=== PATIENT | male | born 1940 | race Caucasian/White ===

== ENCOUNTER → 2016-06-08 | Outpatient (CLI) | payer MEDICARE, OTHER ==
[~2016-06-08] MED LIST: ALEVE 220MG220 MG PO; ASPI325T6; ASPIR-LOW81 MG PO; ASPIRIN E.C. 8181 MG PO; FERROUS SU325 MG/TAB PO; FLOMAX 0.40.4 MG/CAP PO; FLOMAX0.4 MG PO; FOLIC ACID PO; LISINOPRIL PO; LISINOPRIL20 MG PO; NORCO 325 MG-51 TAB PO; NYSTATIN CREAM15 GM TOP; RELAFEN 50500 MG/TAB PO; RESTORIL30 MG PO; ROXICODONE 55 MG/TAB PO; TYLENOL 500MG500 MG PO; ULTRAM 50MG TAB50 MG; VICODIN 5/5001 UDTAB PO; VITAMIN C1 TAB PO; ZESTRIL 10MG10 MG PO; ZOCOR 10MG10 MG; ZOCOR 20MG20 MG PO; ZOFRAN 4MG T4 MG/TAB PO; ZOFRAN4 M1 PO; ZOLOFT 50MG50 MG PO
== END ==
LOC: COL.RAD 13:07
DX: N28.89 Other specified disorders of kidney and ureter (principal); R10.2 Pelvic and perineal pain; K86.89 Other specified diseases of pancreas; Z90.49 Acquired absence of other specified parts of digestive tract; Z90.79 Acquired absence of other genital organ(s)

== ENCOUNTER → 2017-08-25 | Outpatient (CLI) | payer MEDICARE, OTHER | LOC: COL.RAD 07:46 | DX: M25.812 Other specified joint disorders, left shoulder (principal) | CPT/HCPCS: J3301; Q9967 ==

== ENCOUNTER → 2018-01-16 | Outpatient (CLI) | payer MEDICARE, OTHER | LOC: COL.RAD 07:56 | DX: S46.012A Strain of muscle(s) and tendon(s) of the rotator cuff of left shoulder, initial encounter (principal); M75.52 Bursitis of left shoulder | CPT/HCPCS: J3301; Q9967 ==

== ENCOUNTER 2018-02-15 02:00 | Emergency (ER) | payer MEDICARE, OTHER ==
[~2018-02-15] VITALS: Ht 180.3 cm; Wt 97.7 kg
[2018-02-15 02:03] VITALS: TEMP 96.9
[2018-02-15] MEDS ORDERED: ZOCOR 10MG10 MG PO (02:21)
[2018-02-15 02:24] LABS: BASO % 0.3 % (0.0-2.0); EOS # 0.1 (0.0-0.7); EOS % 1.6 % (0-4.0); GRAN # 4.1 (1.4-6.5); GRAN % 51.6 % (42.2-75.2); HEMATOCRIT 42.8 % (42.0-52.0); LYMPH % 37.8 % (20.0-51.0); MEAN CELL VOLUME 91 fl (80.0-100.0); MEAN CORPUSCULAR HEMOGLOBIN 32 pg (27.0-31.0); MEAN CORPUSCULAR HGB CONC 35 g/dl (33.0-37.0); MEAN PLATELET VOLUME 9.7 fl (7.4-10.4); MONO # 0.7 (0.1-0.6); MONO % 8.2 % (1.7-9.3); PLATELET COUNT 206 K/mm3 (130-400); RED BLOOD COUNT 4.72 M/mm3 (4.20-5.60); REDCELL DISTRIBUTION WIDTH-CV 12.6 % (11.5-14.5)
[2018-02-15 02:39] LABS: ALBUMIN 3.9 gm/dL (3.5-5.0); BILIRUBIN,TOTAL 0.6 mg/dL (0.0-1.0); CALCIUM 9.4 mg/dL (8.4-10.2); CREATININE, serum 0.86 mg/dL (0.66-1.25); POTASSIUM 4.4 mmol/L (3.4-5.0); TOTAL PROTEIN 6.8 gm/dL (6.4-8.2)
[2018-02-15 02:50] LABS: COLLECTION METHOD CLEAN CATCH
[2018-02-15 03:21] LABS: MUCOUS Present /lpf; PH 5 (5-8); SQUAMOUS EPITHELIAL 0-2 /hpf; URINE APPEARANCE Cloudy; URINE BACTERIA Rare /hpf; URINE BILIRUBIN Negative (NEGATIVE); URINE BLOOD 3+ (NEGATIVE); URINE COLOR Yellow; URINE GLUCOSE Negative (NEGATIVE); URINE KETONE Negative (NEGATIVE); URINE LEUKOCYTE ESTERASE Negative (NEGATIVE); URINE NITRATE Negative (NEGATIVE); URINE PROTEIN(semi-quant) 1+ (NEGATIVE); URINE RBC >50 /hpf; URINE UROBILINOGEN Negative (NEGATIVE)
[2018-02-15] MEDS ORDERED: NORCO 325 MG-51 TAB PO (03:56)
[2018-02-15] MEDS ORDERED: ZOFRAN ODT4 MG PO (03:56)
[2018-02-15 04:27] VITALS: BP 116/67; PULSE 67
== END 2018-02-15 04:27 | disposition home or self-care (01) ==
LOC: COL.ER 02:00
PROVIDERS: Physician Assistant
DX: N20.1 Calculus of ureter (principal); Z87.442 Personal history of urinary calculi
CPT/HCPCS: J1170; J1885; J2405; J3010; J7030

== ENCOUNTER 2018-05-21 13:27 | Emergency (ER) | payer MEDICARE, OTHER ==
[~2018-05-21] VITALS: Ht 177.8 cm; Wt 95.5 kg
[~2018-05-21 13:27] MED LIST changes: +ZOCOR 10MG10 MG PO; +ZOFRAN ODT4 MG PO
[2018-05-21 13:34] VITALS: TEMP 98.2
[2018-05-21 14:30] LABS: BASO % 0.2 % (0.0-2.0); EOS # 0.1 (0.0-0.7); EOS % 0.9 % (0-4.0); GRAN # 5.9 (1.4-6.5); GRAN % 69.2 % (42.2-75.2); HEMATOCRIT 46.4 % (42.0-52.0); HEMOGLOBIN 15.9 g/dl (13.5-18.0); MEAN CELL VOLUME 91 fl (80.0-100.0); MEAN CORPUSCULAR HEMOGLOBIN 31 pg (27.0-31.0); MEAN CORPUSCULAR HGB CONC 34 g/dl (33.0-37.0); MEAN PLATELET VOLUME 9.8 fl (7.4-10.4); MONO # 0.5 (0.1-0.6); MONO % 6.3 % (1.7-9.3); PLATELET COUNT 202 K/mm3 (130-400); RED BLOOD COUNT 5.12 M/mm3 (4.20-5.60); REDCELL DISTRIBUTION WIDTH-CV 12.6 % (11.5-14.5)
[2018-05-21 14:39] LABS: ALBUMIN 4.2 gm/dL (3.5-5.0); C-REACTIVE PROTEIN 0.9 mg/dL (0.0-0.9); CALCIUM 9.5 mg/dL (8.4-10.2); CREATININE, serum 0.78 mg/dL (0.66-1.25); POTASSIUM 4.2 mmol/L (3.4-5.0); TOTAL PROTEIN 7.2 gm/dL (6.4-8.2)
[2018-05-21 16:50] LABS: COLLECTION METHOD CLEAN CATCH
[2018-05-21 16:55] LABS: MUCOUS Present /lpf; PH 6 (5-8); SQUAMOUS EPITHELIAL None Seen /hpf; URINE APPEARANCE Clear; URINE BACTERIA None Seen /hpf; URINE BILIRUBIN Negative (NEGATIVE); URINE BLOOD Negative (NEGATIVE); URINE COLOR Yellow; URINE GLUCOSE Negative (NEGATIVE); URINE KETONE Negative (NEGATIVE); URINE LEUKOCYTE ESTERASE Negative (NEGATIVE); URINE NITRATE Negative (NEGATIVE); URINE PROTEIN(semi-quant) Negative (NEGATIVE); URINE RBC 0-2 /hpf; URINE UROBILINOGEN Negative (NEGATIVE)
[2018-05-21] MEDS ORDERED: NORCO 325 MG-51 TAB PO (17:11)
[2018-05-21] MEDS ORDERED: LEVSIN 0.10.125 MG/T PO (17:11)
[2018-05-21 17:33] VITALS: BP 137/81; PULSE 78
== END 2018-05-21 17:34 | disposition home or self-care (01) ==
LOC: COL.ER 13:27
PROVIDERS: Family Medicine
DX: R10.30 Lower abdominal pain, unspecified (principal); Z90.89 Acquired absence of other organs
CPT/HCPCS: J1170; J2405; J7030; Q9967

== ENCOUNTER 2020-11-29 14:21 | Emergency (ER) | payer MEDICARE, OTHER ==
[~2020-11-29] VITALS: Ht 180.3 cm; Wt 100.0 kg
[~2020-11-29 14:21] MED LIST changes: +LEVSIN 0.10.125 MG/T PO
[2020-11-29 14:29] VITALS: TEMP 98.5
[2020-11-29] MEDS ORDERED: ZOFRAN ODT4 MG PO (15:15)
[2020-11-29 15:49] VITALS: BP 121/70; PULSE 76
== END 2020-11-29 15:51 | disposition home or self-care (01) ==
LOC: COL.ER 14:21
DX: S06.0X9A Concussion with loss of consciousness of unspecified duration, initial encounter (principal); W22.01XA Walked into wall, initial encounter

== ENCOUNTER 2021-01-23 05:00 | Emergency (ER) | payer MEDICARE, OTHER ==
[~2021-01-23] VITALS: Ht 177.8 cm; Wt 97.7 kg
[2021-01-23 05:02] VITALS: TEMP 98
[2021-01-23 05:19] LABS: BASO % 0.6 % (0.0-2.0); EOS # 0.1 K/mm3 (0.0-0.7); EOS % 2.2 % (0-4.0); GRAN # 3.5 K/mm3 (1.4-6.5); GRAN % 55.9 % (42.2-75.2); HEMATOCRIT 40.7 % (42.0-52.0); HEMOGLOBIN 14.2 g/dl (13.5-18.0); LYMPH # 2.1 K/mm3 (1.2-3.4); MEAN CELL VOLUME 88 fl (80.0-100.0); MEAN CORPUSCULAR HEMOGLOBIN 31 pg (27.0-31.0); MEAN CORPUSCULAR HGB CONC 35 g/dl (33.0-37.0); MEAN PLATELET VOLUME 9.3 fl (7.4-10.4); MONO # 0.5 K/mm3 (0.1-0.6); MONO % 8.1 % (1.7-9.3); PLATELET COUNT 193 K/mm3 (130-400); RED BLOOD COUNT 4.65 M/mm3 (4.20-5.60); REDCELL DISTRIBUTION WIDTH-CV 12.9 % (11.5-14.5)
[2021-01-23 05:27] LABS: PROTHROMBIN TIME 10.6 SECONDS (9.7-12.8)
[2021-01-23 05:30] LABS: PARTIAL THROMBOPLASTIN TIME 29.2 SECONDS (26.0-37.0)
[2021-01-23] MEDS ORDERED: COZAAR 50MG50 MG/TAB PO (05:35)
[2021-01-23 05:36] LABS: ALANINE AMINOTRANSFERASE 10 U/L (0-55); ALBUMIN 3.5 gm/dL (3.4-4.8); ALKALINE PHOSPHATASE 63 U/L (40-150); ANION GAP 10 mmol/L (7-16); AST,SGOT 19 U/L (5-34); BILIRUBIN,TOTAL 0.6 mg/dL (0.2-1.2); BLOOD UREA NITROGEN 16 mg/dL (8-26); CARBON DIOXIDE 20 mmol/L (23-31); CHLORIDE 109 mmol/L (98-107); CREATININE, serum 0.85 mg/dL (0.72-1.25); GLUCOSE 115 mg/dL (70-99); LIPASE 52 U/L (8-78); POTASSIUM 4.2 mmol/L (3.5-4.5); SODIUM 139 mmol/L (136-145); TOTAL PROTEIN 6.6 gm/dL (6.2-8.1)
[2021-01-23 05:42] LABS: TROPONIN-I < 0.010 ng/mL (0.00-0.033)
[2021-01-23 08:03] VITALS: BP 115/66; PULSE 55
== END 2021-01-23 08:12 | disposition home or self-care (01) ==
LOC: COL.ER 05:00
PROVIDERS: Emergency Medicine
DX: R07.89 Other chest pain (principal); E78.00 Pure hypercholesterolemia, unspecified; I10 Essential (primary) hypertension; Z79.899 Other long term (current) drug therapy
CPT/HCPCS: J7030